=== PATIENT | female | born 1955 | race Two or more races ===

== ENCOUNTER 2024-10-25 05:45 | Day surgery (SDC) | payer OTHER ==
[~2024-10-25 05:45] MED LIST: ATACAND32 MG PO; ATORVASTATIN CA10 MG PO; FOSAMAX70 MG PO; TOPROL XL25 M1 PO
[2024-10-25] MEDS ORDERED: POVIDONE-IODINE 118 ML BOTT TOP ONE (08:55)
[2024-10-25] MEDS ORDERED: BUPIVACAINE LIPOSOME/PF 266 MG/20 ML VIAL IJ ONE (08:55)
[2024-10-25] MEDS ORDERED: CEFTRIAXONE SODIUM 2,000 MG VIAL ONE (08:55)
[2024-10-25] MEDS ORDERED: METRONIDAZOLE/SODIUM CHLORIDE 500 MG/100 ML PIGGYBACK IV ONE (08:56)
[2024-10-25] MEDS ORDERED: BUPIVACAINE HCL/Mpf 0.5% 10ML VIAL ONE (09:08)
[2024-10-25] MEDS ORDERED: HEMOSTATIC MATRIX 1 KIT KIT TOP ONE (09:29)
[2024-10-25] MEDS ORDERED: DIBUCAINE 30 GM TUBE ONE (09:53)
== END 2024-10-25 13:55 | disposition home or self-care (01) ==
LOC: CIR.AMB 05:45
PROVIDERS: ATTEND Colon & Rectal Surgery
DX: K64.3 Fourth degree hemorrhoids (principal); K64.4 Residual hemorrhoidal skin tags; K92.2 Gastrointestinal hemorrhage, unspecified; Z91.02 Food additives allergy status; I10 Essential (primary) hypertension; E78.5 Hyperlipidemia, unspecified; M81.0 Age-related osteoporosis without current pathological fracture